=== PATIENT | male | born 1950 | race Caucasian/White ===

== ENCOUNTER 2019-12-27 06:42 | Emergency (ER) | payer OTHER ==
[2019-12-27] MEDS: Nitroglycerin 0.4 MG Tab.SL SL PRN (06:51)
[2019-12-27] MEDS: Nitroglycerin 0.4 MG Tab.SL ONE (06:53)
[2019-12-27] MEDS: Ondansetron 4 MG/2 ML SDV ONE (06:54)
[2019-12-27] MEDS: Sodium Chloride 0.9% 10 ML Syringe FLUSH PRN (06:54)
[2019-12-27] MEDS: Aspirin 81 MG Tab.Chew ONE (06:57)
[2019-12-27 07:11] LABS: PTT,PARTIAL THROMBOPLSTIN TIME 24.3 SEC (24.5-32.8)
[2019-12-27 07:30] LABS: CHLORIDE,CL 105 mmol/L (98-107); SODIUM,NA 139 mmol/L (136-145)
[2019-12-27] MEDS: Nitroglycerin 0.4 MG Tab.SL SL ONE (07:34)
--- NOTE | 2019-12-27 07:58 | EDM.PDOC ---
ED HPI GENERAL MEDICAL PROBLEM - General Chief Complaint: General Stated Complaint: CP Time Seen by Provider: 12/27/19 07:00 Source of Information: Reports: Patient History Limitations: Reports: No Limitations - History of Present Illness INITIAL COMMENTS - FREE TEXT/NARRATIVE: Patient present to ER with compliant of chest pain. Pain goes across chest but is more pronounced on right. Some nausea, no emesis. No diaphoresis. Started yesterday around noon. Waxed and waned since then, sometimes completely going away. No SOB. No palpitations. No other specific reported changes. Did reported take aspirin. No hx of CAD/[place]. Does have history of HTN/DM/elevated lipids. 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, Other (see below) Other Treatments [employer]: tylenol 650 mg at 0600 Right Chest Pain Score (Numeric/FACES): 4 - Related Data Allergies Allergy/AdvReac Type Severity Reaction Status Date / Time No Known Allergies Allergy Verified 12/27/19 06:53 Past Medical History Cardiovascular History: Reports: High Cholesterol, Hypertension Endocrine/Metabolic History: Reports: Diabetes, Type II Social & Family History - Tobacco Use Smoking Status *Q: Former Smoker Used Tobacco, but Quit: Yes Month/Year Tobacco Last Used: 1989 ED ROS GENERAL - Review of Systems Review Of Systems: Comprehensive ROS is negative, except as noted in HPI. ED EXAM, GENERAL - Physical Exam Exam: See Below Exam Limited By: No Limitations General Appearance: Alert, WD/WN, No Apparent Distress Eye Exam: Bilateral Eye: EOMI, PERRL Ears: Hearing Grossly Normal Nose: No: Nasal Deformity, Nasal Swelling Throat/Mouth: Normal Lips, Normal Voice, No Airway Compromise Head: Atraumatic, Normocephalic Neck: Normal Inspection, Supple, Non-Tender, Full Range of Motion. No: Carotid Bruit Respiratory/Chest: No Respiratory Distress, Lungs Clear, Normal Breath Sounds, No Accessory Muscle Use, Other (Tender with palpation right upper chest wall) Cardiovascular: Normal Peripheral Pulses, Regular Rate, Rhythm, No Edema, No Murmur GI/Abdominal: Normal Bowel Sounds, Soft, No Distention (Male) Exam: Deferred Rectal (Males) Exam: Deferred Back Exam: No: CVA Tenderness (L), CVA Tenderness (R), Muscle Spasm Extremities: Non-Tender, Normal Capillary Refill Neurological: Alert, Oriented, Normal Cognition, No Motor/Sensory Deficits Psychiatric: Normal Affect, Normal Mood Skin Exam: Warm, Dry, Intact, Normal Color EKG INTERPRETATION EKG Date: 12/27/19 Time: 06:35 Rhythm: Other (sinus bradycardia) Rate (Beats/Min): 54 Verdi: Normal P-Wave: Present QRS: Normal ST-T: Other (depressed in most of ventricular leads, elevated 3/AVF) QT: Normal Course - Vital Signs Last Recorded V/S: Last Vital Signs Temp 36.2 C 12/27/19 06:42 Pulse 55 L 12/27/19 07:25 Resp 15 12/27/19 07:25 BP 136/81 12/27/19 07:34 Pulse Ox 97 12/27/19 07:25 - Orders/Labs/Meds Orders: Active Orders 24 hr Category Date Time Status EKG Documentation Completion [RC] ASDIRECTED Care 12/27/19 07:22 Ordered Peripheral IV Care [RC] . DIRECTED Care 12/27/19 06:51 Active Chest 1V Frontal [CR] Stat Exams 12/27/19 06:48 Taken Heparin Sodium/0.45% NaCl [Heparin 25,000 Units in 1/2 Med 12/27/19 08:15 Ordered NS 500 ML] 500 ml IV TITRATE Nitroglycerin [Nitrostat] Med 12/27/19 06:48 Active 0.4 mg SL Q5M PRN Sodium Chloride 0.9% [Saline Flush] Med 12/27/19 06:51 Active 10 ml FLUSH ASDIRECTED PRN Peripheral IV Insertion Adult [OM.PC] Routine Oth 12/27/19 06:51 Ordered Medication Orders Heparin Sodium/Sodium Chloride (Heparin 25,000 Units In 1/2 Ns 500 Ml) 500 mls @ 21.62 mls/hr IV TITRATE BRIANNA; Protocol Last Admin: 12/27/19 08:12 Dose: 12 units/kg/hr, 21.62 mls/hr Documented by: LAW Cosigned by: WILBERT Nitroglycerin (Nitrostat) 0.4 mg SL Q5M PRN PRN Reason: Chest Pain Last Admin: 12/27/19 06:51 Dose: 0.4 mg Documented by: FÉLIX Sodium Chloride (Saline Flush) 10 ml FLUSH ASDIRECTED PRN PRN Reason: Keep Vein Open Last Admin: 12/27/19 06:54 Dose: 10 ml Documented by: FÉLIX Labs: Laboratory Tests 12/27/19 12/27/19 12/27/19 Range/Units 06:45 06:45 06:45 WBC 6.2 (4.0-10.2) K/uL RBC 5.02 (4.33-5.41) M/uL Hgb 14.8 (13.1-16.8) g/dL Hct 43.9 (39.0-49.0) % MCV 87.5 (84.0-98.0) fL MCH 29.5 (28.2-33.3) pg MCHC 33.7 (31.7-36.0) g/dL RDW 13.3 (11.2-14.1) % Plt Count 251 (150-350) K/uL Neut % (Auto) 50.7 (45.0-80.0) % Lymph % (Auto) 34.3 (10.0-50.0) % [place] % (Auto) 12.4 (2.0-14.0) % Eos % (Auto) 2.1 (0.0-5.0) % Baso % (Auto) 0.5 (0.0-2.0) % Neut # (Auto) 3.15 (1.40-7.00) K/uL Lymph # (Auto) 2.13 (0.50-3.50) K/uL [place] # (Auto) 0.77 (0.00-1.00) K/uL Eos # (Auto) 0.13 (0.00-0.50) K/uL Baso # (Auto) 0.03 (0.00-0.20) K/uL PT 10.3 (9.5-12.0) SEC INR 1.0 APTT 24.3 L (24.5-32.8) SEC D-Dimer, Quantitative 103 (0-400) ng/mL Sodium (136-145) mmol/L Potassium (3.5-5.1) mmol/L Chloride (98-107) mmol/L Carbon Dioxide (21.0-32.0) mmol/L BUN (7-18) mg/dL Creatinine (0.51-1.17) mg/dL Est Cr Clr Drug Dosing mL/min Estimated GFR (MDRD) mL/min Glucose (74-106) mg/dL Lactic Acid (0.4-2.0) mmol/L Calcium (8.5-10.1) mg/dL Magnesium (1.8-2.4) mg/dL Total Bilirubin (0.2-1.0) mg/dL AST (15-37) U/L ALT (12-78) U/L Alkaline Phosphatase (46-116) IU/L Creatine Kinase (26-308) U/L Creatine Kinase Index (0.0-2.5) % CK-MB (CK-2) (0.00-3.60) ng/mL Troponin I (0.000-0.056) ng/mL NT-Pro-B Natriuret Pep (0-125) pg/mL Total Protein (6.4-8.2) g/dL Albumin (3.4-5.0) g/dL 12/27/19 12/27/19 Range/Units 06:45 06:45 WBC (4.0-10.2) K/uL RBC (4.33-5.41) M/uL Hgb (13.1-16.8) g/dL Hct (39.0-49.0) % MCV (84.0-98.0) fL MCH (28.2-33.3) pg MCHC (31.7-36.0) g/dL RDW (11.2-14.1) % Plt Count (150-350) K/uL Neut % (Auto) (45.0-80.0) % Lymph % (Auto) (10.0-50.0) % [place] % (Auto) (2.0-14.0) % Eos % (Auto) (0.0-5.0) % Baso % (Auto) (0.0-2.0) % Neut # (Auto) (1.40-7.00) K/uL Lymph # (Auto) (0.50-3.50) K/uL [place] # (Auto) (0.00-1.00) K/uL Eos # (Auto) (0.00-0.50) K/uL Baso # (Auto) (0.00-0.20) K/uL PT (9.5-12.0) SEC INR APTT (24.5-32.8) SEC D-Dimer, Quantitative (0-400) ng/mL Sodium 139 (136-145) mmol/L Potassium 4.0 (3.5-5.1) mmol/L Chloride 105 (98-107) mmol/L Carbon Dioxide 26.5 (21.0-32.0) mmol/L BUN 18 (7-18) mg/dL Creatinine 1.03 (0.51-1.17) mg/dL Est Cr Clr Drug Dosing 67.92 mL/min Estimated GFR (MDRD) > 60 mL/min Glucose 197 H (74-106) mg/dL Lactic Acid 1.5 (0.4-2.0) mmol/L Calcium 8.6 (8.5-10.1) mg/dL Magnesium 2.2 (1.8-2.4) mg/dL Total Bilirubin 0.5 (0.2-1.0) mg/dL AST 23 (15-37) U/L ALT 39 (12-78) U/L Alkaline Phosphatase 78 (46-116) IU/L Creatine Kinase 257 (26-308) U/L Creatine Kinase Index 1.9 (0.0-2.5) % CK-MB (CK-2) 4.90 H* (0.00-3.60) ng/mL Troponin I 0.421 H* (0.000-0.056) ng/mL NT-Pro-B Natriuret Pep 306 H (0-125) pg/mL Total Protein 7.2 (6.4-8.2) g/dL Albumin 3.7 (3.4-5.0) g/dL Meds: Medications Generic Name Dose Route Start Last Admin Trade Name Freq PRN Reason Stop Dose Admin Heparin Sodium/Sodium Chloride 500 mls @ 21.62 mls/hr 12/27/19 08:15 12/27/19 08:12 Heparin 25,000 Units In 1/2 Ns 500 Ml IV 12 units/kg/hr TITRATE BRIANNA 21.62 mls/hr Administration Protocol 12 UNITS/KG/HR Nitroglycerin 0.4 mg 12/27/19 06:48 12/27/19 06:51 Nitrostat SL 0.4 mg Q5M PRN Administration Chest Pain Sodium Chloride 10 ml 12/27/19 06:51 12/27/19 06:54 Saline Flush FLUSH 10 ml ASDIRECTED PRN Administration Keep Vein Open Discontinued Medications Generic Name Dose Route Start Last Admin Trade Name Kelechi PRN Reason Stop Dose Admin Aspirin Confirm 12/27/19 06:52 12/27/19 06:57 Aspirin Administered 12/27/19 06:53 324 mg Dose Administration 324 mg .ROUTE .STK-MED ONE Clopidogrel Bisulfate 600 mg 12/27/19 08:03 12/27/19 08:09 Plavix PO 12/27/19 08:04 600 mg ONETIME ONE Administration Heparin Sodium (Porcine) 4,000 units 12/27/19 08:11 12/27/19 08:12 Heparin Sodium IVPUSH 12/27/19 08:12 4,000 units ONETIME ONE Administration Metoprolol Tartrate 25 mg 12/27/19 08:05 Lopressor PO 12/27/19 08:06 ONETIME ONE Morphine Sulfate 2 mg 12/27/19 08:08 Morphine IVPUSH 12/27/19 08:09 ONETIME ONE Nitroglycerin Confirm 12/27/19 06:49 12/27/19 06:53 Nitrostat Administered 12/27/19 06:50 Not Given Dose 0.4 mg .ROUTE .STK-MED ONE Nitroglycerin 0.4 mg 12/27/19 07:30 12/27/19 07:34 Nitrostat SL 12/27/19 07:31 0.4 mg ONETIME ONE Administration Ondansetron HCl Confirm 12/27/19 06:51 12/27/19 06:54 Zofran Administered 12/27/19 06:52 4 mg Dose Administration 4 mg .ROUTE .STK-MED ONE - Radiology Interpretation Free Text/Narrative:: Chest xray: normal cardiac size/no focal infiltrate noted - Re-Assessments/Exams Free Text/Narrative Re-Assessment/Exam: 12/27/19 08:18 Chest pain protocol initiated. Patient received ASA. Alvin contacted and original EKG faxed shortly at 7am. Labs still pending at that time. EKG reviewed by Dr. Barcenas. He did not feel that this appeared to definitively be ischemic in nature. He requested a repeat EKG now that pain had improved from Nitro and also wanted to wait for Troponin results prior to deciding if patient required transfer. No other intervention advised until those were completed. Second EKG showed some changes when compared to previous, including improvement of ventrular leads that had shown depression and elevation noted in 3 and AVF. T waves flipped in 2/AVR/AVF. Second call placed to [facility] at 07:45 once Troponin results became available (7:42) at and noted to be elevated at 0.42. Reviewed patient again with . 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 He also gave go ahead to load patient with heparin/Plavix. Patient did take his prescribed Metoprolol this morning so no additional Metoprolol given prior to transfer. [facility] recommended flight transfer if it was quicker than ground. Call to [facility] placed and they felt they could be on the ground in [place] in 36 min. Transfer initiated. Patient's vital signs remained stable and pain improved prior to transfer. Departure - Departure Time of Disposition: 08:29 Disposition: DC/Tfer to [facility] 02 Condition: Serious Clinical Impression: Non-ST elevation [place] (NSTEMI) - Discharge Information *PRESCRIPTION DRUG MONITORING PROGRAM REVIEWED*: Not Applicable *COPY OF PRESCRIPTION DRUG MONITORING REPORT IN PATIENT AJAY: Not Applicable Referrals: PCP,Unknown [Primary Care Provider] - Forms: ED Department Discharge Sepsis Event Note (ED) - Evaluation Sepsis Screening Result: No Definite Risk - Focused Exam Vital Signs: Vital Signs Temp Pulse Resp BP BP Pulse Ox 12/27/19 07:34 136/81 12/27/19 07:25 55 L 15 136/81 97 12/27/19 07:10 58 L 13 129/68 94 L 12/27/19 06:55 62 15 131/75 94 L 12/27/19 06:51 161/84 H 12/27/19 06:50 60 130/71 12/27/19 06:42 36.2 C 58 L 17 161/84 H 98 - My Orders Last 24 Hours: My Active Orders 12/27/19 06:48 Chest 1V Frontal [CR] Stat Nitroglycerin [Nitrostat] 0.4 mg SL Q5M PRN 12/27/19 06:51 Peripheral IV Care [RC] . DIRECTED Sodium Chloride 0.9% [Saline Flush] 10 ml FLUSH ASDIRECTED PRN Peripheral IV Insertion Adult [OM.PC] Routine 12/27/19 07:22 EKG Documentation Completion [RC] ASDIRECTED 12/27/19 08:15 Heparin Sodium/0.45% NaCl [Heparin 25,000 Units in 1/2 NS 500 ML] 500 ml IV TITRATE - Assessment/Plan Last 24 Hours: My Active Orders 12/27/19 06:48 Chest 1V Frontal [CR] Stat Nitroglycerin [Nitrostat] 0.4 mg SL Q5M PRN 12/27/19 06:51 Peripheral IV Care [RC] . DIRECTED Sodium Chloride 0.9% [Saline Flush] 10 ml FLUSH ASDIRECTED PRN Peripheral IV Insertion Adult [OM.PC] Routine 12/27/19 07:22 EKG Documentation Completion [RC] ASDIRECTED 12/27/19 08:15 Heparin Sodium/0.45% NaCl [Heparin 25,000 Units in 1/2 NS 500 ML] 500 ml IV TITRATE
[2019-12-27] MEDS: Clopidogrel 75 MG Tab PO ONE (08:09)
[2019-12-27] MEDS: Heparin Sodium 5,000 Units/ML Vial IVPUSH ONE (08:12)
[2019-12-27] MEDS: Heparin Sodium/0.45% NaCl 500 ML IV SCH (08:12)
[2019-12-27] MEDS ORDERED: Sodium Chloride 0.9% 1,000 ML IV ONE (08:15)
[2019-12-27] MEDS: Morphine 2 MG/ML SYRINGE IVPUSH ONE (08:38)
[2019-12-27] MEDS: Metoprolol Tartrate 25 MG Tab PO ONE (08:38)
== END 2019-12-27 08:26 ==
LOC: LL.ED 06:42
DX: I21.4 Non-ST elevation (NSTEMI) myocardial infarction (principal); I10 Essential (primary) hypertension; E11.9 Type 2 diabetes mellitus without complications; R00.1 Bradycardia, unspecified; Z87.891 Personal history of nicotine dependence
CPT/HCPCS: 36415; 71045; 80053; 82550; 82553; 83605; 83735; 83880; 84484; 85025; 85379; 85610; 85730; 93005; 93010; 96365; 96366; 99284; 99285-25; A9270-GY; J1644; J2405; J7030

== ENCOUNTER 2020-02-21 15:56 | Emergency (ER) | payer OTHER ==
[2020-02-21 16:38] LABS: CHLORIDE,CL 101 mmol/L (98-107); SODIUM,NA 136 mmol/L (136-145)
[2020-02-21] MEDS: Labetalol 100 MG Tab PO ONE ×2 (17:14→18:16)
--- NOTE | 2020-02-21 17:15 | EDM.PDOC ---
ED HPI GENERAL MEDICAL PROBLEM - General Chief Complaint: Chest Pain Stated Complaint: reproducible cheat pain Time Seen by Provider: 02/21/20 16:00 Source of Information: Reports: Patient History Limitations: Reports: No Limitations - History of Present Illness INITIAL COMMENTS - FREE TEXT/NARRATIVE: Pt presents with right sided chest pain that is reproducible with palpation Pt is Covid positive since last week Also had previous NH No fever Rare cough No trauma Onset: Gradual Duration: Getting Worse Location: Reports: Chest Quality: Reports: Ache Severity: Moderate Improves with: Reports: Rest Worsens with: Reports: Movement - Related Data Allergies Allergy/AdvReac Type Severity Reaction Status Date / Time No Known Allergies Allergy Verified 02/21/20 15:58 Home Meds: Home Meds . [Unable to Verify Home Med List] 02/21/20 [History] Past Medical History Cardiovascular History: Reports: High Cholesterol, Hypertension Endocrine/Metabolic History: Reports: Diabetes, Type II ED ROS GENERAL - Review of Systems Review Of Systems: See Below Constitutional: Reports: No Symptoms Respiratory: Reports: Shortness of Breath Cardiovascular: Reports: Chest Pain GI/Abdominal: Reports: No Symptoms ED EXAM, GENERAL - Physical Exam Exam: See Below Exam Limited By: No Limitations General Appearance: Alert, WD/WN, Mild Distress Neck: Supple Respiratory/Chest: Decreased Breath Sounds, Other (Right chest tender with palpation ) Cardiovascular: Regular Rate, Rhythm Course - Vital Signs Last Recorded V/S: Last Vital Signs Temp 99.2 F 02/21/20 16:02 Pulse 121 H 02/21/20 16:02 Resp 25 H 02/21/20 16:02 BP 152/59 H 02/21/20 16:02 Pulse Ox 93 L 02/21/20 16:02 - Orders/Labs/Meds Orders: Active Orders 24 hr Category Date Time Status EKG Documentation Completion [RC] ASDIRECTED Care 02/21/20 15:59 Active CXR [Chest 1V Frontal] [CR] Stat Exams 02/21/20 15:59 Taken Labs: Laboratory Tests 02/21/20 02/21/20 02/21/20 Range/Units 16:15 16:15 16:15 WBC 2.0 L (4.0-10.2) K/uL RBC 4.65 (4.33-5.41) M/uL Hgb 13.7 (13.1-16.8) g/dL Hct 42.2 (39.0-49.0) % MCV 90.8 D (84.0-98.0) fL MCH 29.5 (28.2-33.3) pg MCHC 32.5 (31.7-36.0) g/dL RDW 13.4 (11.2-14.1) % Plt Count 154 D (150-350) K/uL Neut % (Auto) 33.2 L (45.0-80.0) % Lymph % (Auto) 41.1 (10.0-50.0) % [place] % (Auto) 25.2 H (2.0-14.0) % Eos % (Auto) 0.0 (0.0-5.0) % Baso % (Auto) 0.5 (0.0-2.0) % Neut # (Auto) 0.67 L (1.40-7.00) K/uL Lymph # (Auto) 0.83 (0.50-3.50) K/uL [place] # (Auto) 0.51 (0.00-1.00) K/uL Eos # (Auto) 0.00 (0.00-0.50) K/uL Baso # (Auto) 0.01 (0.00-0.20) K/uL D-Dimer, Quantitative 518 H (0-400) ng/mL Sodium 136 (136-145) mmol/L Potassium 4.3 (3.5-5.1) mmol/L Chloride 101 (98-107) mmol/L Carbon Dioxide 24.0 (21.0-32.0) mmol/L BUN 21 H (7-18) mg/dL Creatinine 1.21 H (0.51-1.17) mg/dL Est Cr Clr Drug Dosing TNP Estimated GFR (MDRD) 59 mL/min Glucose 207 H (74-106) mg/dL Calcium 8.1 L (8.5-10.1) mg/dL Total Bilirubin 0.3 (0.2-1.0) mg/dL AST 33 (15-37) U/L ALT 38 (12-78) U/L Alkaline Phosphatase 62 (46-116) IU/L Troponin I 0.000 (0.000-0.056) ng/mL Total Protein 7.3 (6.4-8.2) g/dL Albumin 3.5 (3.4-5.0) g/dL Meds: Medications Discontinued Medications Generic Name Dose Route Start Last Admin Trade Name Kelechi PRN Reason Stop Dose Admin Labetalol HCl 50 mg 02/21/20 17:00 Normodyne PO 02/21/20 17:01 ONETIME ONE - Re-Assessments/Exams Free Text/Narrative Re-Assessment/Exam: 02/21/20 17:18 Pt stable in ER Pt given Labetalol 50 mg PO in ER Departure - Departure Time of Disposition: 17:30 Disposition: Home, Self-Care 01 Clinical Impression: Chest wall pain Instructions: Chest Wall Pain, [id number] Additional Instructions: Follow up in clinic Sepsis Event Note (ED) - Evaluation Sepsis Screening Result: Possible Sepsis Risk - Focused Exam Vital Signs: Vital Signs Temp Pulse Resp BP Pulse Ox 02/21/20 16:02 99.2 F 121 H 25 H 152/59 H 93 L - My Orders Last 24 Hours: My Active Orders 02/21/20 15:59 EKG Documentation Completion [RC] ASDIRECTED CXR [Chest 1V Frontal] [CR] Stat - Assessment/Plan Last 24 Hours: My Active Orders 02/21/20 15:59 EKG Documentation Completion [RC] ASDIRECTED CXR [Chest 1V Frontal] [CR] Stat
== END 2020-02-21 19:05 | disposition home or self-care (01) ==
LOC: LL.ED 15:56
DX: R07.89 Other chest pain (principal); I10 Essential (primary) hypertension; E11.9 Type 2 diabetes mellitus without complications
CPT/HCPCS: 36415; 71045; 80053; 84484; 85025; 85379; 93005; 99285-25; A9270-GY